=== PATIENT | female | born 1995 | race Caucasian/White ===

== ENCOUNTER 2020-10-15 12:20 | Emergency (ER) | payer MEDICAID ==
--- NOTE | 2020-10-15 12:44 | EDM.PDOC ---
ED HPI GENERAL MEDICAL PROBLEM - General Chief Complaint: General Stated Complaint: FEVER, TOOTH PAIN Time Seen by Provider: 10/15/20 12:38 Source of Information: Reports: Patient History Limitations: Reports: No Limitations - History of Present Illness INITIAL COMMENTS - FREE TEXT/NARRATIVE: patient presented to the ER with a c/o toothache. h/o of chronic dental infection for years. Last infection was 6-7 months ago - similar presentation to today or slightly worse.. no dental injury or trauma No fever. no nausea or emesis. no SOB or problem with speech. no swallowing problems. Was started on clindamycin 300mg TID 3 days ago, after a failed long week of amoxicillin. She reports that she usually responds to amoxicillin in the past - but not this time haven't seen a dentist yet. Onset: Gradual Duration: Day(s): (10) Location: Reports: Face - Related Data Allergies Allergy/AdvReac Type Severity Reaction Status Date / Time No Known Allergies Allergy Verified 10/15/20 12:41 Home Meds: Home Meds Clindamycin HCl 300 mg PO TID 10/15/20 [History] traMADol [Ultram] 50 mg PO Q6H 10/15/20 [History] ED ROS GENERAL - Review of Systems Review Of Systems: See Below Constitutional: Reports: No Symptoms HEENT: Reports: Dental Pain Respiratory: Reports: No Symptoms Cardiovascular: Reports: No Symptoms GI/Abdominal: Reports: No Symptoms Musculoskeletal: Reports: No Symptoms Skin: Reports: No Symptoms Neurological: Reports: No Symptoms ED EXAM, GENERAL - Physical Exam Exam: See Below Exam Limited By: No Limitations General Appearance: Alert, WD/WN Eye Exam: Bilateral Eye: EOMI Throat/Mouth: Other (very poor dental hygience. multile carries, and missing/broken tooth. ) Head: Atraumatic (no gym swelling. no drainage ) Neck: Normal Inspection Respiratory/Chest: No Respiratory Distress Cardiovascular: Normal Peripheral Pulses GI/Abdominal: Soft, Non-Tender Neurological: Alert, Oriented, No Motor/Sensory Deficits Course - Vital Signs Last Recorded V/S: Last Vital Signs Temp 36.8 C 10/15/20 12:20 Pulse 83 10/15/20 12:20 Resp 16 10/15/20 12:20 BP 131/84 10/15/20 12:20 Pulse Ox 100 10/15/20 12:20 - Orders/Labs/Meds Orders: Active Orders 24 hr Category Date Time Status cefTRIAXone [Rocephin] Med 10/15/20 12:44 Once 1 gm IM ONETIME ONE - Re-Assessments/Exams Free Text/Narrative Re-Assessment/Exam: vitals WNL no fever IM rocephin was given will stop clindamycin and switch to PO Augmentin and Flagyl to cover anaerobes Departure - Departure Time of Disposition: 12:55 Disposition: Home, Self-Care 01 Condition: Good Clinical Impression: Tooth infection - Discharge Information *PRESCRIPTION DRUG MONITORING PROGRAM REVIEWED*: Not Applicable *COPY OF PRESCRIPTION DRUG MONITORING REPORT IN PATIENT IMAN: Not Applicable Referrals: PCP,None [Primary Care Provider] - Forms: ED Department Discharge Sepsis Event Note (ED) - Focused Exam Vital Signs: Vital Signs Temp Pulse Resp BP Pulse Ox 10/15/20 12:20 36.8 C 83 16 131/84 100 - Problem List & Annotations (1) Tooth infection SNOMED Code(s): 180543531 Code(s): K04.7 - PERIAPICAL ABSCESS WITHOUT SINUS Status: Acute Priority: Medium Current Visit: Yes - Problem List Review Problem List Initiated/Reviewed/Updated: Yes - My Orders Last 24 Hours: My Active Orders 10/15/20 12:44 cefTRIAXone [Rocephin] 1 gm IM ONETIME ONE - Assessment/Plan Last 24 Hours: My Active Orders 10/15/20 12:44 cefTRIAXone [Rocephin] 1 gm IM ONETIME ONE Plan: - take new antibiotics as prescribed - use over the counter pain medications - follow up with your PCP/dentist in 1-2 weeks - return to the ER if fever or worsening of symptoms or problems with swallowing
[2020-10-15] MEDS: cefTRIAXone 1 GM Vial ONE (12:48)
[2020-10-15] MEDS: cefTRIAXone 1 GM Vial IM ONE (12:55)
== END 2020-10-15 13:00 | disposition home or self-care (01) ==
LOC: LB.ED 12:20
DX: K04.7 Periapical abscess without sinus (principal); K02.9 Dental caries, unspecified
CPT/HCPCS: 96372; 99282; J0696